=== PATIENT | male | born 1960 | race Caucasian/White ===

== ENCOUNTER 2023-02-19 13:09 | Emergency (ER) | payer BC ==
[~2023-02-19] VITALS: Ht 188 cm; Wt 100.7 kg
[2023-02-19 13:32] VITALS: BP 120/79
--- NOTE | 2023-02-19 14:00 | NUR ---
C/O BOIL IN THE RIGHT INNER THIGHX2 DAYS NKA PMH: DM, HTN
--- NOTE | 2023-02-19 15:30 | NUR ---
PT CALLED IN AND OUTSIDE LOBBY , NO ANSWER
[2023-02-19] MEDS ORDERED: LIDOCAINE 1% 500 MG/ 50 ML VIAL INJ ONE (17:05)
[2023-02-19] MEDS ORDERED: SULF-59 PO (17:38)
--- NOTE | 2023-02-19 17:45 | NUR ---
Patient discharged with v/s stable. Written and verbal after care instructions given and explained. Patient alert, oriented and verbalized understanding of instructions. Ambulatory with steady gait. All questions addressed prior to discharge. ID band removed. Patient advised to follow up with PMD. Rx of BACTRIM DS given. Patient educated on indication of medication including possible reaction and side effects. Opportunity to ask questions provided and answered.
== END 2023-02-19 17:45 | disposition home or self-care (01) ==
LOC: MED 13:09
DX: L02.415 Cutaneous abscess of right lower limb (principal); E11.9 Type 2 diabetes mellitus without complications; Z79.2 Long term (current) use of antibiotics
CPT/HCPCS: 10060; 76870; 99284; J2001; Q0092

== ENCOUNTER 2024-03-03 12:39 | Emergency (ER) | payer BC ==
[~2024-03-03] VITALS: Ht 182.9 cm; Wt 103.9 kg
[~2024-03-03 12:39] MED LIST: SULF-59 PO
[2024-03-03 12:56] VITALS: BP 136/72; PULSE 89; RESP 18; TEMP 97.9; O2SAT 98
[2024-03-03 14:00] VITALS: BP 136/58; PULSE 80; RESP 20; TEMP 98.3; O2SAT 98
[2024-03-03] MEDS ORDERED: AMOX-1230 PO (14:00)
== END 2024-03-03 14:00 | disposition home or self-care (01) ==
LOC: MED 12:39
DX: I96 Gangrene, not elsewhere classified (principal); E11.9 Type 2 diabetes mellitus without complications; I10 Essential (primary) hypertension; Z79.899 Other long term (current) drug therapy
CPT/HCPCS: 73630; 99283; Q0092

== ENCOUNTER 2024-03-04 22:20 | Emergency (ER) | payer BC ==
[~2024-03-04] VITALS: Ht 188 cm; Wt 103.9 kg
[2024-03-04] MEDS: VANCOMYCIN 1,000 MG in DEXTROSE 5% 250 ML IV ONE (01:30)
[~2024-03-04 22:20] MED LIST changes: +AMOX-1230 PO
[2024-03-04 22:40] VITALS: BP 143/75; PULSE 84; RESP 18; TEMP 98.2; O2SAT 98
[2024-03-05 00:27] LABS: BASOPHILS # (AUTO) 0.1 K/uL (0.00-0.22); BASOPHILS % (AUTO) 0.6 % (0.0-2.0); EOSINOPHILS # (AUTO) 0.1 K/uL (0-0.4); EOSINOPHILS % (AUTO) 1.2 % (0.0-4.0); HEMATOCRIT 32.2 % (36-52); HEMOGLOBIN 10.8 g/dL (12.0-18.0); LYMPHOCYTES # (AUTO) 1.9 K/uL (2.0-11.5); LYMPHOCYTES % (AUTO) 15.8 % (20.5-51.1); MEAN CORPUSCULAR HEMOGLOBIN 30 pg (27-31); MEAN CORPUSCULAR HGB CONC 34 g/dL (33-37); MEAN CORPUSCULAR VOLUME 88.1 fL (80-94); MONOCYTES # (AUTO) 1.3 K/uL (0.8-1.0); MONOCYTES % (AUTO) 10.6 % (1.7-9.3); NEUTROPHILS # (AUTO) 8.6 K/uL (1.8-7.7); NEUTROPHILS % (AUTO) 71.8 % (42.2-75.2); PLATELET COUNT (AUTO) 256 K/uL (140-450); RED BLOOD CELL COUNT(AUTO) 3.66 MIL/uL (4.20-6.10); RED CELL DISTRIBUTION WIDTH 14.3 % (11.6-13.7)
[2024-03-05] MEDS ORDERED: cefTRIAXone 1,000 MG VIAL ONE (00:28)
[2024-03-05] MEDS: NACL 0.9% 1,000 ML IV SCH (00:32)
[2024-03-05 00:40] LABS: ANION GAP 16.3 (8-16); CALCIUM 9.4 mg/dL (8.5-10.1); CARBON DIOXIDE 22.5 mmol/L (21-32); CREATININE 3.1 mg/dL (0.6-1.3); POTASSIUM 4.8 mmol/L (3.5-5.1)
[2024-03-05 00:45] LABS: INR 0.92 (0.8-1.2); PARTIAL THROMBOPLASTIN TIME 23.1 secs (22-35.6); PROTHROMBIN TIME 9.7 secs (10.8-13.4)
[2024-03-05 00:46] LABS: APPEARANCE,URINE CLEAR (CLEAR); BILIRUBIN,URINE NEGATIVE (NEGATIVE); BLOOD, URINE TRACE-I (NEGATIVE); COLOR,URINE YELLOW (YELLOW); LEUKOCYTE ESTERASE ,URINE NEGATIVE (NEGATIVE); NITRITE, URINE NEGATIVE (NEGATIVE); PROTEIN,URINE 1+ (NEGATIVE); UGLUCOSE NEGATIVE (NEGATIVE); UROBILINOGEN,URINE 0.2 EU/dL (0.2 - 1)
[2024-03-05 00:49] LABS: BACTERIA,URINE FEW /HPF (None Seen); MUCUS,URINE None Seen /LPF (None Seen); RBC,URINE 0-5 /HPF (0-5); SQUAMOUS EPITHELIAL CELL,UR 0-3 (FEW) /LPF (0-3 (FEW)); WBC,URINE 0-5 /HPF (0-5)
[2024-03-05 00:52] LABS: ALANINE AMINOTRANSFERASE 18 U/L (12-78); ALBUMIN 3.9 g/dL (3.4-5.0); ALKALINE PHOSPHATASE 92 U/L (50-136); ASPARTATE AMINOTRANSFERASE 18 U/L (15-37); BILIRUBIN,DIRECT 0.1 mg/dL (0.0-0.3); CREATINE KINASE, TOTAL 412 U/L (39-308); TOTAL BILIRUBIN 1.1 mg/dL (0.0-1.0)
[2024-03-05 00:55] LABS: LACTIC ACID 0.9 mmol/L (0.4-2.0)
[2024-03-05] MEDS ORDERED: VANCOMYCIN 1,000 MG VIAL ONE (01:21)
[2024-03-05] MEDS ORDERED: CEPH-588 PO (02:44)
[2024-03-05] MEDS: BACITRACIN OINT 500 UNITS/GM PKT TP ONE (03:07)
[2024-03-05 03:25] VITALS: BP 150/78; PULSE 71; RESP 18; O2SAT 98
== END 2024-03-05 03:25 | disposition home or self-care (01) ==
LOC: MED 22:20
DX: L03.032 Cellulitis of left toe (principal); N28.9 Disorder of kidney and ureter, unspecified; E11.9 Type 2 diabetes mellitus without complications; Z79.4 Long term (current) use of insulin; Z79.899 Other long term (current) drug therapy
CPT/HCPCS: 36415; 71045; 73660; 80048; 80076; 81001; 82550; 82553; 83605; 83880; 84484; 85025; 85610; 85730; 87040; 93005; 96365; 96367; 99285; J0696; J3370; J7030